=== PATIENT | female | born 1965 ===

== ENCOUNTER 2016-08-10 08:45 | Inpatient (IN) ==
--- NOTE | 2016-08-10 09:14 | EKG Report ---
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
[2016-08-10] MEDS ORDERED: NITROGLYCERIN SL 0.4 MG TABLET SL STA (09:16)
[2016-08-10] MEDS ORDERED: NITROGLYCERIN SL 0.4 MG TABLET SL ONE (09:19)
[2016-08-10 09:31] LABS: Calcium 10.6 MG/DL (8.5-10.1); Osmolality,Calculated 282.1 MOS/KG (273-304); Potassium 3.6 MMOL/L (3.5-5.1)
[2016-08-10] MEDS ORDERED: MORPHINE 2 MG/1 ML SYRINGE ONE (09:48)
[2016-08-10 09:49] LABS: Amorphous Crystals,Urine Occasional /HPF (Few); Apearance,Urine CLOUDY (Clear); Bilirubin,Urine Negative (Negative); Blood, Urine Negative (Negative); Glucose,Urine (UA) Negative (Negative); Ketones,Urine Negative (Negative); Nitrite,Urine Negative (Negative); Protein,Urine Negative; Squamous Epithelial Cell,Urine Occasional /HPF (0-10); Urine Color Yellow (Yellow); Urine Urobilinogen < 2.0 EU/DL (0.2-1.0)
[2016-08-10] MEDS ORDERED: ENOXAPARIN 100 MG/ML SYRINGE SUBCUT STA (09:50)
[2016-08-10 09:53] LABS: Barbiturates Screen,Urine Negative (Negative); Benzodiazepines Screen,Urine Negative (Negative); Cannabinoid Screen,Urine Negative (Negative); Opiate Screen,Urine Positive (Negative); Phencyclidine Screen,Urine Negative (Negative)
--- NOTE | 2016-08-10 09:54 | XRay Report ---
XR chest 2V Indication: Chest pain Comparison: None available Findings: The heart and mediastinum are normal in size and configuration. The pulmonary vascularity is normal in caliber. No lung infiltrates, effusions, pneumothorax or other abnormality is demonstrated. Impression: Normal chest x-ray PROCEDURE INTERPRETED AT [facility] DEPARTMENT OF RADIOLOGY Final Report Signed by: Dr. Slim Bello
[2016-08-10] MEDS ORDERED: ENOXAPARIN 100 MG/ML SYRINGE SUBCUT ONE (09:59)
[2016-08-10 10:14] LABS: Basophils # 0.1 10*3/uL (0.0-0.2); Basophils % 1.1 % (0.0-0.8); Eosinophils # 0.2 10*3/uL (0.0-0.87); Eosinophils % 2.7 % (0.00-10.9); Hematocrit 35.1 VOL% (35.7-47.0); Hemoglobin 11.5 GM/DL (12.0-16.0); Immature Granulocytes % 1.1 %; Immature Granulocytes Absolute 0.07 #; Lymphocytes # 1.6 10*3/uL (1.4-4.0); Mean Corpuscular HGB Conc 32.8 GM/DL (32-36); Mean Corpuscular Hemoglobin 30 PG (27-34); Mean Corpuscular Volume 92.1 FL (87-102); Mean Platelet Volume 10.8 FL (9.6-12.0); Monocytes # 0.5 10*3/uL (0.11-0.8); Monocytes % 8.2 % (1.7-12.7); Neutrophils # 4.1 10*3/uL (1.4-7.4); Neutrophils % 61.9 % (38.7-73.9); Platelet Count 324 T/CUMM (130-400); Red Blood Count 3.81 MC/CUMM (3.8-5.5); Red Cell Distribution Width 14.3 % (9.3-17.3); White Blood Count 6.6 T/CUMM (4-12)
[2016-08-10] MEDS ORDERED: NITROGLYCERIN 2% OINT 1 INCH/GM PACK TOP ONE (10:15)
[2016-08-10] MEDS ORDERED: ASPIRIN 325 MG TABLET PO STA (10:16)
[2016-08-10] MEDS ORDERED: ATORVASTATIN 40 MG TABLET PO STA (10:17)
[2016-08-10] MEDS ORDERED: ACETAMINOPHEN 325 MG TABLET PO PRN (10:17)
[2016-08-10] MEDS ORDERED: MAGNESIUM SULF RIDER 2 GM in PREMIX 1 EACH IV PRN (10:17)
[2016-08-10] MEDS ORDERED: ONDANSETRON 4 MG/2 ML VIAL IV PRN (10:17)
[2016-08-10] MEDS ORDERED: ZALEPLON 5 MG CAPSULE PO PRN (10:17)
[2016-08-10] MEDS ORDERED: MAGNESIUM SULF RIDER 4 GM in PREMIX 1 EACH IV PRN (10:17)
[2016-08-10] MEDS ORDERED: NITROGLYCERIN 2% OINT 1 INCH/GM PACK TOP STA (10:17)
[2016-08-10] MEDS ORDERED: BISACODYL 5 MG TABLET PO PRN (10:17)
[2016-08-10] MEDS ORDERED: METOPROLOL TARTRATE 25 MG TABLET PO STA (10:17)
[2016-08-10] MEDS ORDERED: DOCUSATE SODIUM 100 MG CAPSULE PO PRN (10:17)
[2016-08-10] MEDS ORDERED: METOPROLOL TARTRATE 25 MG TABLET ONE (10:21)
[2016-08-10] MEDS ORDERED: ATORVASTATIN 40 MG TABLET ONE (10:21)
[2016-08-10] MEDS ORDERED: ASPIRIN 325 MG TABLET ONE (10:21)
--- NOTE | 2016-08-10 10:25 | Cardiology History & Physical ---
Assessment and Plan - Time spent with patient Time spent with patient: Less than 30 minutes (1) Hypertension Status: Chronic Assessment and plan: We'll adjust medications accordingly during hospital stay Current Visit: Yes (2) Obesity (BMI 30-39.9) Status: Chronic Assessment and plan: Dietary counseling prior to discharge. Current Visit: Yes (3) Sleep disorder Status: Acute Current Visit: Yes (4) Hypothyroid Status: Chronic Assessment and plan: Resume replacement. Check TSH Current Visit: Yes (5) Chest pain Status: Acute Assessment and plan: Elevated troponin. Suspicious for NSTEMI. 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 She is being taken to woven label designer Current Visit: Yes History of Present Illness Chief complaint: chest pain, elevated troponin History of present illness: Ms. Low is a 51 year old female not previously followed by cardiology. Risk factors include: Hypertension, obesity, tobaccoism and sedentary lifestyle. This morning, patient was awakened with chest "heaviness" in the left chest area , radiating to the left shoulder. It was associated with mild shortness of breath. Was not associated with nausea, vomiting or diaphoresis. She can identify no aggravating factors. She rates the discomfort as a 9 on a scale of 1-10. She received IV morphine and nitroglycerine and the discomfort has decreased to a 4 on a scale of 1-10. The pain has been intermittently occurring for approximately 3 hours. Troponin noted to be 0.2. EKG does not reflect a STEMI. She has been given aspirin, Lovenox 100 mg subcutaneous, nitroglycerin paste. She is receiving a beta yokasta, statin. [place] and has not established herself with a primary care provider at this point. She's never seen a teller head nor had history of known coronary artery disease or myocardial infarction. She tells me she does take her medications routinely and that she will take an antiplatelet daily without fail. No vomiting of blood or passing blood in her stool. No history of allergy to IVP dye or shellfish. She still has her menstrual cycle however her urine is negative. Dr. Worthington is here in the emergency room evaluating the patient and preparing her for heart catheterization. Home Medications Medication Instructions Recorded Confirmed Type Levothyroxine Tab [Synthroid Tab] 200 mcg PO DAILY 08/10/16 08/10/16 History Moxifloxacin HCl [Moxifloxacin Tab] 400 mg PO DAILY 08/10/16 08/10/16 History Olmesartan/Amlodipin/Hcthiazid 1 each PO DAILY 08/10/16 08/10/16 History [Tribenzor 40-10-25 mg Tablet] Allergies Allergy/AdvReac Type Severity Reaction Status Date / Time Penicillins Allergy RASH Verified 08/10/16 09:22 Review of systems: REVIEW OF SYSTEMS: - Constitutional Constitutional: Present: Fatigue. Family acknowledges she snores heavily, holds her breath and casts for air frequently. Neck circumference greater than 44 cm. Absent: syncope, anorexia, night sweats - EENT Eyes: Absent: blurry vision, loss of vision, diplopia Ears: Absent: decreased hearing, ear pain, ear discharge - Cardiovascular Cardiovascular: Present: chest pain with exertion and chest pain at rest. Mild dyspnea on exertion. Mild ankle swelling. Denies palpitations. Absent: chest pain with deep breath, claudication, - Respiratory Respiratory: Present: FOFANA, denies cough. Absent: wheezing, hemoptysis, change in phlegm color - Gastrointestinal Gastrointestinal: Denies constipation. Absent: adbominal pain, hematemesis, hematochezia, melena, change in bowel habits, nausea - Genitourinary Genitourinary: Absent: difficulty urinating, dysuria, urinary hesitancy, flank pain - Musculoskeletal Musculoskeletal: Present: back pain Absent: joint swelling, muscle cramps, muscle weakness - Neurological Neurological: Present: normal gait without frequent falls. Absent: dizziness, hemiparesis - Psychiatric Psychiatric: Absent: anxiety, depression, difficulty concentrating - Endocrine Endocrine: Present: fatigue. Absent: cold intolerance, heat intolerance, polyuria, polyphagia, polydipsia - Hematologic/Lymphatic Hematologic/Lymphatic: Present: easy bruising. Absent: easy bleeding, easy bruisability -Integumentary Integumentary: Absent: lesions, rashes, skin breakdown Medical,Surgical,& Family Hx - Medical History Cardio: History of: Hypertension No history of: CAD, MS Gastrointestinal: History of: GERD - Surgical History Cardiac Surgeries: Patient Denies: Cardiac Catheterization - Social History Smoking Status: Smoker, status unknown Have you smoked in the last 12 months: Yes Time spent discussing smoking cessation with patient: 3 to 10 minutes Frequency of Alcohol Use: None Type of Drug Use: None Cardiology Physical Exam - Constitutional Vitals: Vital Signs Temp Pulse Resp BP Pulse Ox 98 F 65 20 150/92 99 08/10/16 09:14 08/10/16 09:14 08/10/16 09:14 08/10/16 09:14 08/10/16 08:47 Intake and Output 08/09/16 08/10/16 08/10/16 23:59 07:59 15:59 Other: Weight 102.058 kg Patient Weight 08/10/16 23:59 Weight 102.058 kg Exam: General: Appears well with no apparent distress. Pleasant and cooperative. Appears comfortable. HEENT: PERRL, normocephalic, atraumatic. Mucous membranes moist. No jaundice noted. Conjunctiva moist and clear, sclerae anicteric Neck: No JVD/HJR, no thyromegaly or lymphadenopathy noted. No carotid bruit appreciated Cardiac: Regular rate and rhythm. No murmur rub or gallop. Lungs: Clear to auscultation without accessory muscle use to assist the respiratory pattern. Using oxygen via nasal cannula. Abdomen: Soft, bowel sounds normoactive. Nontender and nondistended. No abdominal bruit or thrill noted. No masses noted. Musculoskeletal: No fluid collection. Decreased range of motion is noted. Extremities: No clubbing, cyanosis noted. No edema noted. Upper extremity pulses 2+. Lower extremity pulses 2+. Capillary refill less than 3 seconds. Skin: No unusual lesions or rashes. No skin breakdown appreciated. Neuro: Awake, alert and oriented 3. Moves all extremities well without hemiparesis or paralysis. No essential tremor is appreciated. Result/EKG - Labs CBC & BMP: 08/10/16 09:00 08/10/16 09:00 Lab Results: I have reviewed the past 24 hour labs Labs: Laboratory Results - last 24 hr 08/10/16 08/10/16 08/10/16 09:00 09:00 09:00 WBC 6.6 RBC 3.81 Hgb 11.5 L Hct 35.1 L MCV 92.1 MCH 30 MCHC 32.8 RDW 14.3 Plt Count 324 MPV 10.8 Neut % (Auto) 61.9 Lymph % (Auto) 25.0 [place] % (Auto) 8.2 Eos % (Auto) 2.7 Baso % (Auto) 1.1 H Neut # (Auto) 4.1 Lymph # (Auto) 1.6 [place] # (Auto) 0.5 Eos # (Auto) 0.2 Baso # (Auto) 0.1 Immature Gran % 1.1 Nucleated RBC % 0.0 Immature Gran # 0.07 Nucleated RBCs # 0.00 Sodium 142 Potassium 3.6 Chloride 109 H Carbon Dioxide 25 Anion Gap 11.6 BUN 7 Creatinine 0.70 GFR Calculation 123 BUN/Creatinine Ratio 10.00 Glucose 127 H Calculated Osmolality 282.1 Calcium 10.6 H Magnesium 2.0 Troponin I 0.208 H Urine Color Urine Appearance Urine pH Ur Specific [place] Urine Protein Urine Glucose (UA) Urine Ketones Urine Blood Urine Nitrate Urine Bilirubin Urine Urobilinogen Urine Leukocytes Ur Squamous Epith Cells Amorphous Crystals Ur Culture Indicated? Urine Test Urine Opiates Screen Ur Barbiturates Screen Ur Phencyclidine Scrn U Amphetamine/Methamph U Benzodiazepines Scrn U Cocaine Metab Screen U Cannabinoids Screen 08/10/16 08/10/16 08/10/16 09:00 09:00 10:14 WBC RBC Hgb Hct MCV MCH MCHC RDW Plt Count MPV Neut % (Auto) Lymph % (Auto) [place] % (Auto) Eos % (Auto) Baso % (Auto) Neut # (Auto) Lymph # (Auto) [place] # (Auto) Eos # (Auto) Baso # (Auto) Immature Gran % Nucleated RBC % Immature Gran # Nucleated RBCs # Sodium Potassium Chloride Carbon Dioxide Anion Gap BUN Creatinine GFR Calculation BUN/Creatinine Ratio Glucose Calculated Osmolality Calcium Magnesium Troponin I Urine Color Yellow Urine Appearance Cloudy Urine pH 7.0 Ur Specific [place] 1.010 Urine Protein Negative Urine Glucose (UA) Negative Urine Ketones Negative Urine Blood Negative Urine Nitrate Negative Urine Bilirubin Negative Urine Urobilinogen < 2.0 H Urine Leukocytes Negative Ur Squamous Epith Cells Occasional Amorphous Crystals Occasional Ur Culture Indicated? Not indicated Urine Test Negative Urine Opiates Screen Positive H Ur Barbiturates Screen Negative Ur Phencyclidine Scrn Negative U Amphetamine/Methamph Negative U Benzodiazepines Scrn Negative U Cocaine Metab Screen Negative U Cannabinoids Screen Negative - Diagnostic Findings Procedure: Chest x-ray: report reviewed by me - EKG EKG results: interpreted by me EKG shows: sinus rhythm Quality Measures - VTE Contraindication to Pharmacological VTE Prophylaxis: Already on Theraputic Agent , No Prophylaxis Needed
--- NOTE | 2016-08-10 10:31 | Emergency Department Note ---
Monique Reece Gwan, am scribing for, and in the presence of, Lonnie Mackay M.D. 09:16. Codie Reece Howard T, M.D., personally performed the services described in this documentation, ascribed by Adam Amaya in my presence, and it is both accurate and complete [id number] . Arrival - Arrival Chief Complaint: Chest Pain Stated Complaint: chest pain ED Nursing Triage Note: Patient arrived via ems with complaint of chest pain and vomiting. EMS reports no ST elevation. Patient recieved ASA 324mg, Nitro sprays x 2, Morphine 2mg, Zofran 4mg while in route per EMS. Patient's chest pain started at approx 0745 this am-- woke up with pain. Mid-sternal pain with radiation to left shoulder. PMH: htn, thyroid, gerd. Mode of Arrival: Stretcher Limitations: No Limitations Source: Patient, EMS, Old Records Reviewed, RN Notes Reviewed - History of Present Illness HPI Narrative: Pt is a 51 y/o female, with a hx of HTN, who presents to the ED with a c/o chest pain and vomiting with an onset today. Her associated sxs have been SOB and diaphoresis. Patient stated that her last NML time was 2330 last night. She continued to note that her pain came on this morning at 0745 and she describes the pain as dull/sharp and stated that it is located mid-sternal and that it radiates to her left shoulder. EMS notes that pt was given ASA 324mg, Nitro spray x2, Morphine 2mg and Zofran 4mg en route. She stated that after she received the Morphine, her pain began to ease. Patient confirms that she smokes cigareetss and that she has a FMHx of heart disease. No other problems/ complaints reported in ED. Pt has a PMHx of thyroid disease and GERD. Onset (ago): hour(s) Consistency: constant Severity: moderate Date of Last Menstrual Period: 07/06/2016 Allergies/Adverse Reactions: Allergies Allergy/AdvReac Type Severity Reaction Status Date / Time Penicillins Allergy RASH Verified 08/10/16 09:22 Home Medications: Home Medications Medication Instructions Recorded Confirmed Type Levothyroxine Tab [Synthroid Tab] 200 mcg PO DAILY 08/10/16 08/10/16 History Moxifloxacin HCl [Moxifloxacin Tab] 400 mg PO DAILY 08/10/16 08/10/16 History Olmesartan/Amlodipin/Hcthiazid 1 each PO DAILY 08/10/16 08/10/16 History [Tribenzor 40-10-25 mg Tablet] Review of System - Review of System 12 point system: reviewed and no additional remarkable complaints except as stated - Review of System Constitutional: Present: as per HPI, diaphoresis Respiratory: Present: as per HPI, other (SOB) Cardiovascular: Present: as per HPI, chest pain Musculoskeletal: Present: as per HPI, other (left shoulder pain ) Medical,Surgical,& Family Hx - Medical History Cardio: History of: Hypertension Gastrointestinal: History of: GERD - Social History Smoking Status: Smoker, status unknown Frequency of Alcohol Use: None Type of Drug Use: None Exam Vital Signs: Vital Signs Temperature 98 F 08/10/16 09:14 Pulse Rate 65 08/10/16 09:14 Respiratory Rate 20 08/10/16 09:14 Blood Pressure 150/92 08/10/16 09:14 O2 Sat by Pulse Oximetry 99 08/10/16 08:47 - General General appearance: alert - Head Head exam: Present: atraumatic, normocephalic - Eye Eye exam: Present: normal appearance, PERRL, EOMI - ENT ENT exam: Present: normal oropharynx, mucous membranes moist, TM's normal bilaterally, normal external ear exam - Neck Neck exam: Present: full ROM, trachea midline. Absent: tenderness, meningismus , lymphadenopathy, thyromegaly - Chest Chest inspection: Present: symmetric chest wall rise. Absent: tenderness - Respiratory Respiratory exam: Present: normal lung sounds bilaterally. Absent: respiratory distress - Abdominal Exam Abdominal exam: Present: soft, normal bowel sounds. Absent: distention, tenderness, guarding - Extremities Exam Extremities exam: Present: full ROM. Absent: tenderness, pedal edema, calf tenderness - Back Exam Back exam: Present: full ROM. Absent: tenderness - Neurological Exam Neurological exam: Present: alert, oriented X3, CN II-XII intact. Absent: motor sensory deficit - Psychiatric Psychiatric exam: Present: normal affect, normal mood - Skin Skin exam: Present: warm, dry, intact, normal color Course Course Narrative: Medical decision making: Patient's history and exam is consistent with NSTEMI, elevated troponins and history consistent. Discussed with cardiology service who will evaluate and admit for further evaluation treatment. Results - Labs CBC & BMP: 08/10/16 09:00 08/10/16 09:00 Lab Results: I have reviewed the patients labs Labs: Laboratory Tests 08/10/16 08/10/16 08/10/16 09:00 09:00 09:00 Sodium 142 Potassium 3.6 Chloride 109 H Carbon Dioxide 25 BUN 7 Creatinine 0.70 Glucose 127 H Calcium 10.6 H Troponin I 0.208 H Urine pH 7.0 Ur Specific [place] 1.010 Urine Urobilinogen < 2.0 H Ur Squamous Epith Cells Occasional Amorphous Crystals Occasional - EKG EKG results: interpreted by ERMD, sinus rhythm, normal axis, normal QRS, normal ST/T, no acute changes - Diagnostic Findings Procedure: Chest x-ray: report reviewed by me (no acute) Disposition Clinical Impression: Chest pain, NSTEMI (non-ST elevated myocardial infarction) Case discussed with: patient Disposition: Disch/Xfer-Ipshort Term Hos Condition: Guarded Time of Disposition: 09:53
[2016-08-10] MEDS ORDERED: fentaNYL 100 MCG/2 ML VIAL ONE (11:15)
[2016-08-10] MEDS ORDERED: LIDOCAINE 1% 20 ML VIAL ONE (11:15)
[2016-08-10] MEDS ORDERED: MIDAZOLAM 2 MG/2 ML VIAL ONE (11:15)
--- NOTE | 2016-08-10 11:16 | History and Physical Update ---
Sedation H&P Update - History and Physical H&P was reviewed, the patient examined and there: are no changes in the patients condition since last H&P was completed. - Dictation Physical: refer to H&P completed by admitting physician - Physical Exam Mental Status: alert and oriented Heart: regular rate and rhythm Lung: clear to auscultation Abdomen: within normal limits Vitals: within normal limits History and Physical Changes: none - Sedation Plan for Sedation: moderate Patient Consent: Procedure disscussed with patient and patinet has consented., Risks and benefits were discussed with patient,including infection,, bleeding, injury to surrounding structures, seizure, temporary nerve, Patient understands and accepts potential risks/benefits and agrees to, proceed. ASA Class: IV Airway Assessment: Class IV: Only hard palate visible
[2016-08-10] MEDS ORDERED: TIROFIBAN 5,000 MCG/100 ML PREMIX IV ONE (11:32)
[2016-08-10] MEDS ORDERED: TICAGRELOR 90 MG TABLET ONE (11:51)
[2016-08-10] MEDS ORDERED: TIROFIBAN 5,000 MCG/100 ML PREMIX IV SCH (12:00)
[2016-08-10] MEDS ORDERED: HYDROmorphone 2 MG/1 ML VIAL IV PRN (12:00)
--- NOTE | 2016-08-10 12:07 | Operative Note ---
Date of procedure: 08/10/16 Procedure Preformed: Left heart catheterization with PCI of proximal LAD. Surgeon / Physician: Randall Ferguson Copy Operator: Gómez Bearden Post-op diagnosis: same Findings: High-grade LAD stenosis was successful proximal tenderness prevention of lesion. See full report for details. Specimens: none sent Estimated blood loss: minimal Condition: stable Anesthesia: local, conscious sedation Disposition: floor
--- NOTE | 2016-08-10 12:50 | Cardiac Catheterization ---
Date of Procedure:: 08/10/16 Pre-op Diagnosis: Patient with anginal quality chest pain. Trivially elevated troponin. Post-op diagnosis: same Procedure: LEFT HEART CATHERIZATION History: 51-year-old female who presented with exertional angina symptomatology. This crescendo to rest angina today. She presented was evaluated and found to have some trivially elevated troponin. She has risk factors for heart disease. Pre-Op diagnosis: Unstable angina, coronary disease. Postoperative diagnosis: A stable angina, documented coronary disease with successful intervention of LAD stenosis. Procedures: 1. Left heart catheterization. 2. Left ventricular angiogram. 3. Selective left and right coronary angiograms. 4. Percutaneous coronary intervention with stent in proximal LAD 5.. Right common femoral artery Angio-Seal hemostasis. Equipment: 6 Mauritanian arterial sheath, 6 Mauritanian diagnostic pigtail catheter, JL4 and JR4 diagnostic catheters. A 6 [place]ian Angio-Seal hemostatic device. For percutaneous coronary intervention of LAD: JL4 PCI guide catheter, [employer]- [employer] flex PCI guidewire, 3.0 x 12 mm Rx apex balloon, 3.5 x 16 mm JENNIFER. Medications: Preoperative Benadryl and Valium given by mouth. Lidocaine 1% local anesthesia 10 mls administered by myself. Intraprocedure patient received Versed 2 milligrams IVP, fentanyl 100 micrograms IVP. For PCI: Aggrastat bolus 54 mL's IVP, Aggrastat infusion 18.4 mL/hour, Brilinta 180 mgms. Complications: None immediate. Contrast: Omnipaque 163 milliliters. Description of procedure: After informed consent the patient was given preoperative medications and brought to the catheterization laboratory where their right groin was prepped and draped in usual fashion. IV sedation was then obtained after which local anesthesia was administered at the right groin over the right common femoral artery. Using modified Seldinger technique the right common femoral artery was cannulated with 6 Mauritanian arterial sheath placed. The pigtail catheter was then advanced through the sheath in a retrograde approach through the aorta to the aortic valve. The catheter was advanced through the aortic valve where left ventricular pressures were measured. The catheter was then pulled back into the aortic root and pressures measured. The catheter was then advanced across the aortic valve into the left ventricle where left ventricular angiogram was obtained in the right anterior oblique view. The pigtail catheter was then removed. The JL4 diagnostic coronary catheter was then advanced through the sheath in a retrograde approach and used to cannulate the left coronary artery of which angiograms were obtained in multiple projections. This catheter was then removed. The JR 4 diagnostic coronary catheter was then advanced retrograde through the aorta and used to cannulate the right coronary artery of which angiograms were obtained in multiple projections. This right coronary catheter was then removed. The LAD had a high-grade stenosis proximally. A JL4 PCI guide catheter was advanced and cannulated the left main coronary through which a pro-water flex PCI guidewire was advanced across the LAD lesion to the distal LAD. Over this a 3.0 x 12 mm [place] balloon was advanced and predilation was carried out for 30 seconds at 12 leslye. This balloon was removed. We still has significant stenosis. A 3.5 x 16 mm [employer] JENNIFER was advanced and crossed the proximal LAD stenosis and deployed at 12 leslye for 43 seconds. The balloon was pulled back slightly into the stent more proximally and a 16 leslye inflation was 11 seconds in order to dilate the proximal still little larger than the distal. It appeared we had good apposition without immediate complications with post intervention angiograms. After intervention on initial equivalent was removed. Angio-Seal hemostasis obtained with Angio-Seal of the right common femoral artery. No immediate complications. Hemodynamic data: LV 133/-1 , EDP 14; AO root 134/84, mean 105 . Left ventricular angiogram: The left ventricle is normal size and systolic function. There may be some slight anterior wall hypokinesis but overall ejection fraction is 55+ percent. There is no sniff mitral regurgitation noted. The aortic valve. We have probably a tricuspid structure. The thoracic and abdominal aorta from the right anterior oblique view appeared be unremarkable without gross pathology. The right common iliac, external iliac and common referral artery are all patent. Left main coronary artery angiogram: Calcification is present. This is a medium to large size vessel. It bifurcates to LAD and circumflex arteries. At worst there may be 10-20% stenosis. Left anterior descending artery angiogram: There is diffuse calcification of the LAD. It is a medium caliber vessel proximally slightly smaller than of the circumflex artery. It extends to the posterior apical region. Diagonal branches are small caliber but long vessels especially the first diagonal. Proximally there is a 90% stenosis with YEISON 2 flow. Is otherwise diffuse disease up to 20%. Circumflex artery angiogram: Circumflex artery appears to be the dominant vessel. It is large. It also has diffuse calcification. It gives rise to several obtuse marginal branches and posterior ventricular branch and the what is probably the PDA and AV node artery. There is diffuse calcification. There is diffuse irregularities with most significant stenosis being the distal vessel prior to the takeoff of what is probably the PDA this is 50%. Good flow was noted in this area. Right coronary artery angiogram: RCA is a small vessel possibly codominant may give rise to a small PDA. His diffuse disease with probably from 50-70% mid stenosis. Again this is a small vessel and not a good candidate for intervention. PCI of LAD : This is as noted above in carried out as described. The 9% lesion was dilated 0% residual stenosis. The initial YEISON 2 flow was resolved with YEISON-3 flow within the procedure. Right common femoral artery angiogram: Vessel is patent but seen by where LV gram runoff. Successful Angio-Seal hemostasis. Impression: 1. Left ventricle is normal size and overall normal systolic function with ejection fraction of 55%. Anterior wall may be slightly hypokinetic. 2. LVEDP is normal at 14 mmHg. 3. There is no significant mitral regurgitation. 4. Aortic valve is probably a tricuspid structure without gradient. 5. RCA is small vessel possibly codominant. It has 50-70% mid stenosis. It is not a good vessel for intervention. 6. Left main cord with calcification and 10 -20% stenosis. 7. Circumflex artery with diffuse calcification with possible very distal stenosis at worst 50%. There is otherwise diffuse irregularities but no obstructive disease. 8. LAD with proximal 90% stenosis and YEISON 2 flow. There is diffuse calcification otherwise diffuse mild luminal irregularities. 9. Successful PCI of proximal LAD with a 90% lesion dilated 0% residual stenosis. Initial YEISON 2 flow with residual YEISON-3 flow. 10. Successful Angio-Seal hemostasis right common for artery. Discussion: We'll monitor the patient post procedure. The patient will undergo risk factor modification and reviewed. The last crit we have a see the patient and will follow with the patient is an outpatient once discharged. Implants: See full report above. Anesthesia: local, moderate conscious sedation Surgeon / Physician: Randall Ferguson Electric Crane Operator: other (Gómez LEAL) Estimated blood loss: minimal Specimens: none sent Condition: stable Disposition: floor - Medications / Follow-up
[2016-08-10] MEDS ORDERED: INFLUENZA VIRUS VACCINE 0.5 ML SYRINGE IM ONE (16:14)
[2016-08-10] MEDS ORDERED: SODIUM CHLORIDE 0.9% 1,000 ML IV SCH (16:30)
--- NOTE | 2016-08-10 17:06 | Sleep Medicine Consult ---
Assessment and Plan (1) Unspecified sleep apnea Status: Acute Assessment and plan: With her history of snoring, crowded upper airway, obesity, and medical problems of hypertension, hypothyroidism, and coronary artery disease, sleep evaluation is indicated and she will be scheduled for outpatient polysomnography at the [facility]. She resides in the [facility] and I can see her in follow-up at the sleep clinic there. Thank you for this consult and the opportunity to participate in her care. Current Visit: Yes (2) NSTEMI (non-ST elevated myocardial infarction) Status: Acute Assessment and plan: I reviewed the Gibson data from Lancet 2004 with the patient to their understanding. This study proved significant reduction in the risk of fatal and nonfatal cardiac events in patients with severe obstructive sleep apnea compliant with CPAP, in comparison with those noncompliant with CPAP for severe sleep apnea. Current Visit: Yes (3) Hypertension Status: Chronic Assessment and plan: The prevalence rate for obstructive sleep apnea patients with hypertension is 35 %. That rate can be as high as 80% in patients who require 4 or more medications for blood pressure control. Current Visit: Yes (4) Hypothyroid Status: Chronic Assessment and plan: It is important to maintain euthyroid status in that untreated hypothyroidism can contribute to obstructive sleep apnea. Adjusting thyroid replacement therapy to see adequately suppressed TSH levels is necessary. Current Visit: Yes History of Present Illness Chief complaint: sleep apnea History of present illness: Ms. Low is a 51 year old female who was admitted with chest pain and had elevated troponins concerning for non-ST elevation [place]. During the course for evaluation, it was noted that she has a history of loud snoring and there was concern for sleep apnea as a contributing factor. 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 She was sleep during the day primarily. She has never been told that she stops breathing during her sleep but will awaken from sleep sometimes short of breath. She does have restlessness of her legs and discomfort of her legs that disturb her sleep. She is treated for hypothyroidism and hypertension. She has no known family history of sleep apnea. Home Medications Medication Instructions Recorded Confirmed Type Levothyroxine Tab [Synthroid Tab] 200 mcg PO DAILY 08/10/16 08/10/16 History Olmesartan/Amlodipin/Hcthiazid 1 each PO DAILY 02/07/17 02/07/17 History [Tribenzor 40-10-25 mg Tablet] Allergies Allergy/AdvReac Type Severity Reaction Status Date / Time Penicillins Allergy RASH Verified 08/10/16 09:22 Review of systems: Otherwise unremarkable other than as stated in HPI. She does have nocturia at times. Exam (Pulmonay) H&P - Constitutional Vitals: Period Temp Pulse Resp BP Sys/Lamas Pulse Ox Last 24 Hr 97.3 F-98.1 F 65-81 17-20 131-150/71-92 97-99 Exam: She is alert and responsive in no acute distress. Pupils equal round reactive to light and accommodation. Extraocular movements intact. Oropharynx with class IV Mallampati exam. Neck supple without adenopathy or thyromegaly. No supraclavicular adenopathy is noted. Chest with symmetrical breath sounds without focal wheezes, rhonchi, or rales. Cardiac exam reveals a regular rhythm without murmur or gallop. Abdomen soft nontender without palpable hepatosplenomegaly or mass. Extremities are without clubbing, cyanosis, or edema. Neurologically, she is grossly intact. She moves all extremities with good strength and ambulates with a normal gait. Medical,Surgical,& Family Hx - Medical History Cardio: History of: Hypertension No history of: CAD, [place] Endocrine: History of: Dyslipidemia, Thyroid Disorder Gastrointestinal: History of: GERD - Surgical History Cardiac Surgeries: Patient Denies: Cardiac Catheterization (stents) Abdominal Surgeries: Surgical HX of: Cholecystectomy Reproductive Surgeries: Surgical HX of;: Section - Family History Family History: Reports;: Family Heart Disease, Family Hypertension - Social History Smoking Status: Former smoker Frequency of Alcohol Use: None Type of Drug Use: None Results - Labs CBC & BMP: 08/10/16 09:00 08/10/16 09:00 Lab Results: I have reviewed the past 24 hour labs Labs: TSH is elevated and consistent with uncontrolled hypothyroidism. Quality Measures - VTE Contraindication to Pharmacological VTE Prophylaxis: Already on Theraputic Agent , No Prophylaxis Needed Specialty Discharge - Follow Up or Referrals
[2016-08-10 19:00] LABS: CKMB % 10.9 %
[2016-08-10 19:02] LABS: Troponin I Only 2.27 NG/ML (0.00-0.045)
[2016-08-10] MEDS ORDERED: ATORVASTATIN 40 MG TABLET PO SCH (21:00)
[2016-08-10] MEDS: CARVEDILOL 6.25 MG TABLET PO SCH (21:36)
[2016-08-10] MEDS: TICAGRELOR 90 MG TABLET PO SCH (21:36)
[2016-08-11 04:29] LABS: Basophils # 0.1 10*3/uL (0.0-0.2); Basophils % 0.7 % (0.0-0.8); Eosinophils # 0.2 10*3/uL (0.0-0.87); Hematocrit 30.3 VOL% (35.7-47.0); Immature Granulocytes % 0.8 %; Immature Granulocytes Absolute 0.07 #; Lymphocytes # 2.1 10*3/uL (1.4-4.0); Lymphocytes % 24.3 % (21.3-54.2); Mean Corpuscular Hemoglobin 30 PG (27-34); Mean Corpuscular Volume 89.4 FL (87-102); Mean Platelet Volume 10.7 FL (9.6-12.0); Monocytes # 0.7 10*3/uL (0.11-0.8); Monocytes % 7.7 % (1.7-12.7); Neutrophils # 5.5 10*3/uL (1.4-7.4); Neutrophils % 64.5 % (38.7-73.9); Platelet Count 282 T/CUMM (130-400); Red Blood Count 3.39 MC/CUMM (3.8-5.5); Red Cell Distribution Width 14.5 % (9.3-17.3); White Blood Count 8.5 T/CUMM (4-12)
[2016-08-11 05:05] LABS: Blood Urea Nitrogen 4 MG/DL (7-18); Calcium 10.1 MG/DL (8.5-10.1); Calcium 10.2 MG/DL (8.5-10.1); Glucose 103 MG/DL (74-106); Osmolality,Calculated 284.7 MOS/KG (273-304); Osmolality,Calculated 286.6 MOS/KG (273-304); Potassium 3.6 MMOL/L (3.5-5.1); Potassium 3.7 MMOL/L (3.5-5.1); Risk Ratio 6.63; Sodium 145 MMOL/L (136-145); Total Protein 5.4 G/DL (6.4-8.3); VLDL CHOLESTEROL 21.2 MG/DL
[2016-08-11] MEDS ORDERED: LEVOTHYROXINE 200 MCG TABLET PO SCH (07:00)
--- NOTE | 2016-08-11 07:30 | EKG Report ---
Stationary ECG Study [facility] Test Date: 08/11/2016 7:29:38 AM Pat Name: CARLO FRANKLIN Department: Room: 289 Gender: F Lmft: : 1965 Requested by: Randall Diaz Order Number: [id number] Reading MD: NUSRAT SANCHEZ Intervals [place] Rate: 67 P: 59 [place]: 197 QRS: 12 QRSD: 93 T: 143 QT: 470 QTc: 486 Interpretive Statements SINUS RHYTHM LOW QRS VOLTAGE IN PRECORDIAL LEADS ST DEVIATION AND MODERATE T-WAVE ABNORMALITY, CONSIDER ANTEROLATERAL ISCHEMIA Electronically Signed On 08-11-16 12:53:45 AIRPORT OPERATIONS SUPERVISOR by NUSRAT SANCHEZ [email or web address]
--- NOTE | 2016-08-11 08:07 | ECHO Report ---
Gissell Low Exam Date: 08/10/2016 12:56 Referring Physician: Technologist: Fernanda Hobbs RDCS Age: 51 Ht (in): Wt (lb): Gender: F Exam Location: [facility] Echo Indications: Chest pain, unspecified, Shortness of breath, Non-ST elevation (NSTEMI) myocardial infarction, Essential (primary) hypertension, Chronic fatigue, unspecified, Elevated troponin, Sleep disorder BP: / HR: Rhythm: Sinus Technical Quality: Technically difficult study IMPRESSIONS The left ventricular ejection fraction is estimated at 60-65% but there appears to be very mild distal anterapical hypokinesis. Mild concentric left ventricular hypertrophy with mild diastolic dysfunction. Trace to mild mitral valve regurgitation. Trace to mild tricuspid valve regurgitation. MEASUREMENTS (Male / Female) Normal Values 2D ECHO LV Diastolic Diameter PLAX 4.3 cm 4.2 - 5.9 / 3.9 - 5.3 cm LV Systolic Diameter PLAX 2.9 cm LV Fractional Shortening PLAX 32.9 % IVS Diastolic Thickness 1.1 cm 0.6 - 1.0 / 0.6 - 0.9 cm LVPW Diastolic Thickness 1.1 cm 0.6 - 1.0 / 0.6 - 0.9 cm RV Internal Dim ED PLAX 2.5 cm Aortic Root Diameter 3.2 cm LA Systolic Diameter LX 3.6 cm 3.0 - 4.0 / 2.7 - 3.8 cm DOPPLER TR Peak Velocity 225.0 cm/s TR Peak Gradient 20.3 mmHg FINDINGS Left Ventricle Mild concentric left ventricular hypertrophy with mild diastolic dysfunction. The left ventricular ejection fraction is estimated at 60-65% but there appears to be very mild distal anterapical hypokinesis. Right Ventricle The right ventricle is normal in size and function. Right Atrium The right atrium is normal in size. Left Atrium The left atrium is normal in size. Mitral Valve Thickened mitral valve. Trace to mild mitral valve regurgitation. Aortic Valve Morphologically normal aortic valve without significant sclerosis or stenosis. There is no aortic regurgitation. Tricuspid Valve Morphologically normal tricuspid valve. Trace to mild tricuspid valve regurgitation. Tricuspid regurgitation velocities suggest a PAP of 30 mmHg. Pulmonic Valve Morphologically normal pulmonic valve. Mild pulmonary valve regurgitation. Pericardium Normal pericardium without effusion. Aorta Normal ascending aorta dimension. Filippo Worthington (Electronically Signed) Final Date: 10 August 2016 19:12
[2016-08-11] MEDS: CARVEDILOL 6.25 MG TABLET PO SCH (08:57)
[2016-08-11] MEDS: TICAGRELOR 90 MG TABLET PO SCH (08:58)
[2016-08-11] MEDS ORDERED: LEVOFLOXACIN 500 MG TABLET PO SCH (09:00)
[2016-08-11] MEDS ORDERED: hydroCHLOROthiazide 25 MG TABLET PO SCH (09:00)
[2016-08-11] MEDS ORDERED: PANTOPRAZOLE 40 MG TABLET PO SCH (09:00)
[2016-08-11] MEDS ORDERED: ASPIRIN EC 81 MG TABLET PO SCH (09:00)
[2016-08-11] MEDS ORDERED: OLMESARTAN 20 MG TABLET PO SCH (09:00)
[2016-08-11] MEDS ORDERED: amLODIPine 10 MG TABLET PO SCH (09:00)
[2016-08-11 12:09] VITALS: BP 124/86
--- NOTE | 2016-08-11 12:17 | Discharge Summary ---
<Lora Sung E - Last Filed: 08/11/16 12:18> Hospital Course - Hospital Course Hospital Course: Ms. Low is a 51 year old female not previously followed by cardiology. Risk factors include: Hypertension, obesity, tobaccoism and sedentary lifestyle. Patient presented to the emergency department [facility] 08/10/2016 after experiencing a chest heaviness radiating to the left shoulder. It was associated with mild shortness of breath. When she arrived to the emergency department Dr. Worthington examine the patient. Her troponin noted to be 0.2. She received the usual acute coronary syndrome protocol was taken emergently to the cardiac catheterization lab where she underwent heart catheterization performed by Dr. Ferguson. The following impression is noted: Procedures: 1. Left heart catheterization. 2. Left ventricular angiogram. 3. Selective left and right coronary angiograms. 4. Percutaneous coronary intervention with stent in proximal LAD 5.. Right common femoral artery Angio-Seal hemostasis. Equipment: 6 Colombian arterial sheath, 6 Colombian diagnostic pigtail catheter, JL4 and JR4 diagnostic catheters. A 6 [place] Angio-Seal hemostatic device. For percutaneous coronary intervention of LAD: JL4 PCI guide catheter, [employer] flex PCI guidewire, 3.0 x 12 mm Rx apex balloon, 3.5 x 16 mm JENNIFER. 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 Overnight, she did well. She has been walking in her room without difficulty. Her vital signs are stable and she is anxious for release home. She is been discharged home in stable condition. She is following up for outpatient sleep study is scheduled by Dr. Ward in [facility]. She is being given a follow-up appointment with Dr. Worthington in one week. At that visit along labs will be obtained: BMP, magnesium and CBC, EKG. I discussed the importance of medication adherence including taking aspirin and Brilinta as instructed. She verbalized understanding of this information. Discharge medications will include the following: Aspirin 81 mg orally daily Brilinta 90 mg orally twice a day without fail. She is being given a prescription guarded discharge Atorvastatin 40 mg orally each evening Coreg 6.25 orally twice a day Benicar 40 mg orally daily HCTZ 25 mg orally daily Norvasc 10 mg orally daily Prilosec 20 mg orally daily - Time spent with patient Time with patient DS: Greater than 30 minutes Diagnosis - Discharge Diagnosis (1) Hypertension Status: Chronic (2) Obesity (BMI 30-39.9) Status: Chronic (3) Sleep disorder Status: Chronic (4) Hypothyroid Status: Chronic (5) Chest pain Status: Resolved (6) NSTEMI (non-ST elevated myocardial infarction) Status: Resolved Specialty Discharge - Follow Up or Referrals Follow up with: Filippo Worthington MD [Physician] - 08/18/16 9:50 am (BMP, Mg, CBC and EKG) Discharge Plan - Discharge Data Disposition: Disch To Home/Self Care Condition at Discharge: Stable Discharge Diet: heart healthy Activity: other Hygiene: no restrictions Weight Bearing at Discharge: other (post-cath expectations post cath expectations) Driving: other (post-cath expectations) Contact your physician if you experience:: fever over 101, Difficulty voiding, Redness or swelling, Nausea/Vomiting, Shortness of breath, Bleeding, pain uncontrolled by pain medications - Discharge Medications New Aspirin EC Tab 81 mg PO DAILY #30 tablet amLODIPine [Norvasc] 10 mg PO DAILY tablet Atorvastatin [Lipitor] 40 mg PO BEDTIME #30 tablet Carvedilol [Coreg] 6.25 mg PO BID #60 tablet Pantoprazole Tab [Protonix Tab] 40 mg PO DAILY #30 tablet Ticagrelor [Brilinta] 90 mg PO BID #60 tablet hydroCHLOROthiazide [Hydrochlorothiazide] 25 mg PO DAILY tablet Continue Olmesartan/Amlodipin/Hcthiazid [Tribenzor 40-10-25 mg Tablet] 1 each PO DAILY Levothyroxine Tab [Synthroid Tab] 200 mcg PO DAILY - Follow Up or Referral Follow Up: Filippo Worthington MD [Physician] - 08/18/16 9:50 am (BMP, Mg, CBC and EKG) - Forms/Instructions Instructions: Myocardial Infarction (GEN), Coronary Artery Disease (GEN), Left Heart Catheterization (DC), Heart Healthy Diet (GEN), Cigarette Smoking and Your Health, Brace Maker (GEN), Coronary Intravascular Stent Placement, Brace Maker (GEN) Exam - Constitutional Vitals: Period Temp Pulse Resp BP Sys/Lamas Pulse Ox Last 24 Hr 98.4 F 83 20 124/86 97 Exam: General: Appears well with no apparent distress. Pleasant and cooperative. Appears comfortable. HEENT: PERRL, normocephalic, atraumatic. Mucous membranes moist. No jaundice noted. Conjunctiva moist and clear, sclerae anicteric Neck: No JVD/HJR, no thyromegaly or lymphadenopathy noted. No carotid bruit appreciated Cardiac: Regular rate and rhythm. No murmur rub or gallop. Lungs: Clear to auscultation without accessory muscle use to assist the respiratory pattern. Not requiring oxygen. Abdomen: Soft, bowel sounds normoactive. Nontender and nondistended. No abdominal bruit or thrill noted. No masses noted. Musculoskeletal: No fluid collection. Decreased range of motion is noted. Extremities: Right groin free of hematoma or bruit. No clubbing, cyanosis noted. No edema noted. Upper extremity pulses 2+. Lower extremity pulses 2+. Capillary refill less than 3 seconds. Skin: No unusual lesions or rashes. No skin breakdown appreciated. Neuro: Awake, alert and oriented 3. Moves all extremities well without hemiparesis or paralysis. No essential tremor is appreciated. Discharge Results - Imaging and Cardiology Cardiology Procedure: report reviewed by me Procedure: Chest x-ray: report reviewed by me DS: Provider Date of admission: 08/10/2016 Primary care physician: Tresa Wolfe MD Attending physician on admission: Dr. Filippo Worthington Discharging clinician: Lora Sung NP Expected date of discharge: 08/11/16 <Filippo Worthington - Last Filed: 08/11/16 16:19> Hospital Course - Hospital Course Hospital Course: I have seen, interviewed, examined the patient and reviewed his chart and discussed the case with the mid-level provider and agree with the plan as outlined in the note.
== END 2016-08-11 13:22 | disposition home or self-care (01) | DRG 247 ==
LOC: N.ED 08:45 → N.SDS 10:17 → N.CL 10:18 → N.TELEN 10:58 → N.CL 10:58 → N.ED 11:03 → N.CL 11:05 → N.TELEN 16:09 → N.ED 08-11 13:22 → N.TELEN 08-11 13:31
PROVIDERS: ADMIT General Practice; ATTEND General Practice
PROC: CLCCHCL (ICD-10-PCS; 2016-08-10 11:15)

== ENCOUNTER 2017-02-26 22:08 | Inpatient (IN) ==
[2017-02-27] MEDS ORDERED: SODIUM CHLORIDE 0.45% 1,000 ML IV SCH (01:00)
[2017-02-27 01:40] LABS: Basophils # 0.1 10*3/uL (0.0-0.2); Basophils % 1.4 % (0.0-0.8); Eosinophils # 0.2 10*3/uL (0.0-0.87); Eosinophils % 2.9 % (0.00-10.9); Hematocrit 38.2 VOL% (35.7-47.0); Hemoglobin 13.1 GM/DL (12.0-16.0); Immature Granulocytes % 0.4 %; Immature Granulocytes Absolute 0.02 #; Lymphocytes # 2.2 10*3/uL (1.4-4.0); Lymphocytes % 42.9 % (21.3-54.2); Mean Corpuscular HGB Conc 34.3 GM/DL (32-36); Mean Corpuscular Hemoglobin 31 PG (27-34); Mean Corpuscular Volume 90.3 FL (87-102); Mean Platelet Volume 10.7 FL (9.6-12.0); Monocytes # 0.4 10*3/uL (0.11-0.8); Monocytes % 7.3 % (1.7-12.7); NRBC # 0.02 10*3/uL; Neutrophils # 2.3 10*3/uL (1.4-7.4); Neutrophils % 45.1 % (38.7-73.9); Platelet Count 256 T/CUMM (130-400); Red Blood Count 4.23 MC/CUMM (3.8-5.5); Red Cell Distribution Width 15.1 % (9.3-17.3); White Blood Count 5.1 T/CUMM (4-12)
[2017-02-27 02:13] LABS: Albumin 4.3 G/DL (3.4-5.0); Bilirubin,Total 0.5 MG/DL (0.2-1.0); Calcium 11.6 MG/DL (8.5-10.1); Osmolality,Calculated 275.5 MOS/KG (273-304); Potassium 3.8 MMOL/L (3.5-5.1); Total Protein 7.1 G/DL (6.4-8.3)
[2017-02-27 02:25] LABS: Risk Ratio 10.63; VLDL CHOLESTEROL 24.8 MG/DL
[2017-02-27 08:39] LABS: Troponin I Only < 0.015 NG/ML (0.00-0.045)
--- NOTE | 2017-02-27 08:54 | EKG Report ---
Stationary ECG Study [facility] Test Date: 02/27/2017 1:48:10 AM Pat Name: CARLO FRANKLIN Department: Room: 294 Gender: F Video Conference Specialist: : 1965 Requested by: Debi Ang Order Number: [id number] Reading MD: LATRICIA ROGERS Intervals [place] Rate: 65 P: 26 [place]: 180 QRS: -42 QRSD: 111 T: 8 QT: 429 QTc: 441 Interpretive Statements SINUS RHYTHM WITH SINUS ARRHYTHMIA ABNORMAL LEFT AXIS DEVIATION NONSPECIFIC T WAVE ABNORMALITY Electronically Signed On 02-28-17 11:45:43 CDT by LATRICIA ROGERS [email or web address]
[2017-02-27 10:05] LABS: Apearance,Urine CLOUDY (Clear); Bacteria,Urine Moderate /HPF (Few); Bilirubin,Urine Negative (Negative); Blood, Urine Small mg/dL (Negative); Glucose,Urine (UA) Negative (Negative); Ketones,Urine Negative (Negative); Mucus,Urine Occasional /LPF (Occasional); Nitrite,Urine Negative (Negative); Protein,Urine Negative; RBC,Urine 1 /HPF (0-4); Squamous Epithelial Cell,Urine Occasional /HPF (0-10); Urine Color Yellow (Yellow); Urine Specific Gravity 1.012 (1.001-1.035); Urine Urobilinogen < 2.0 EU/DL (0.2-1.0); WBC,Urine 12 /HPF (0-6)
[2017-02-27 11:28] LABS: Troponin I Only < 0.015 NG/ML (0.00-0.045)
--- NOTE | 2017-02-27 15:45 | ECHO Report ---
Gissell Low Exam Date: 02/27/2017 11:30 Referring Physician: Technologist: Fernanda Hobbs RDCS Age: 52 Ht (in): 66 Wt (lb): 207 Gender: F Exam Location: [facility] Echo Indications: Chest pain, unspecified, Hypotension, SHARIF BP: 140 / 55 HR: 64 Rhythm: Sinus Technical Quality: Fair IMPRESSIONS Normal LV systolic function, ejection fraction 55%. Grade 1/4 diastolic dysfunction. Mild concentric left ventricular hypertrophy. Mild aortic, tricuspid and pulmonic regurgitation. Pulmonary artery pressures estimated at 24 more meters mercury. MEASUREMENTS (Male / Female) Normal Values 2D ECHO LV Diastolic Diameter PLAX 3.8 cm 4.2 - 5.9 / 3.9 - 5.3 cm LV Systolic Diameter PLAX 2.7 cm LV Fractional Shortening PLAX 29.3 % IVS Diastolic Thickness 1.4 cm 0.6 - 1.0 / 0.6 - 0.9 cm LVPW Diastolic Thickness 1.4 cm 0.6 - 1.0 / 0.6 - 0.9 cm RV Internal Dim ED PLAX 3.3 cm Aortic Root Diameter 3.2 cm LA Systolic Diameter LX 3.5 cm 3.0 - 4.0 / 2.7 - 3.8 cm DOPPLER TR Peak Velocity 185.0 cm/s TR Peak Gradient 13.7 mmHg FINDINGS Left Ventricle Normal left ventricular cavity size. Mild left ventricular hypertrophy. Left ventricular ejection fraction is estimated at 55 %. Right Ventricle The right ventricle is normal in size and function. Right Atrium The right atrium is normal in size. Left Atrium The left atrium is normal in size. Mitral Valve Morphologically normal mitral valve without significant stenosis or prolapse. There is no mitral regurgitation. Aortic Valve The aortic valve is trileaflet and has normal motion. Trace to mild aortic valve regurgitation. Tricuspid Valve Morphologically normal tricuspid valve. Trace tricuspid valve regurgitation. Tricuspid regurgitation velocities suggest a PAP of 24 mmHg. Pulmonic Valve Morphologically normal pulmonic valve. Trace pulmonary valve regurgitation. Pericardium Normal pericardium without effusion. Aorta Normal ascending aorta dimension. Debi Ang MD (Electronically Signed) Final Date: 27 February 2017 15:44
--- NOTE | 2017-02-27 15:50 | Cardiology History & Physical ---
Assessment and Plan (1) Hypotension Status: Acute Assessment and plan: I suspect this is secondary to her recent change in antihypertensives. We will discharge her home on less medications as will be described in her discharge summary. We are going to stop her IV fluids first and have her ambulate, make sure that her vital signs remained stable prior to discharge. Current Visit: Yes (2) Coronary artery disease Status: Chronic Current Visit: Yes (3) Hypertension Status: Chronic Current Visit: No (4) Hypothyroid Status: Chronic Current Visit: No (5) Urinary tract infection Status: Acute Assessment and plan: We will treated with 3 days of Cipro Current Visit: Yes History of Present Illness Chief complaint: dizziness History of present illness: Business Reporter: Dr. Worthington. Ms. Low is a 51 year old female with a history of coronary artery disease, hypertension. She was admitted to the hospital in August 2016 with acute coronary syndrome and underwent PCI of the LAD with a synergy 3.5 x 16 mm drug- eluting stent. She was feeling unwell, somewhat lightheaded and found to be hypotensive with a blood pressure in the 70s. She was transferred here from [place] for further evaluation and treatment. She denies any chest pain, shortness of breath, lower extremity edema, orthopnea, palpitations, paroxysmal nocturnal dyspnea. She has not had any other acute illness such as nausea, vomiting, diarrhea. She does acknowledge that her medications have been changed , in the past she was well-controlled on Tribenzor. She was recently on Diovan 160 mg p.o. daily as well as chlorthalidone, and 3 days prior to admission this was changed to Tribenzor 40/10/25. She has not had any other acute complaints. She has been hydrated and is requesting to be discharged home. Home Medications Medication Instructions Recorded Confirmed Type Olmesartan/Amlodipin/Hcthiazid 1 each PO DAILY 08/10/16 02/27/17 History [Tribenzor 40-10-25 mg Tablet] Aspirin EC Tab 81 mg PO DAILY #30 tablet 08/11/16 02/27/17 Rx Carvedilol [Coreg] 12.5 mg PO BID 02/27/17 02/27/17 History Clopidogrel [Plavix] 75 mg PO DAILY 02/27/17 02/27/17 History Liothyronine Sodium [Liothyronine 25 mg PO BID 02/27/17 02/27/17 History Sodium] Allergies Allergy/AdvReac Type Severity Reaction Status Date / Time Penicillins Allergy RASH Verified 08/10/16 09:22 12 point system: reviewed and no additional remarkable complaints except as stated Medical,Surgical,& Family Hx - Medical History Cardio: History of: CAD, Hypertension, [place] HEENT: Comment Only: HEENT Problems (sinus surgery-nasal polyp) Endocrine: History of: Dyslipidemia, Thyroid Disorder Gastrointestinal: History of: GERD - Surgical History Cardiac Surgeries: Sugical HX of: Cardiac Catheterization (PCI LAD 08/2016 Synergy) Abdominal Surgeries: Surgical HX of: Abdominal Surgery, Cholecystectomy Reproductive Surgeries: Surgical HX of;: Section, Gynecologic Surgery ( pre cervical cancer cells removed) - Family History Family History: Reports;: Family Heart Disease, Family Hypertension - Social History Smoking Status: Former smoker Frequency of Alcohol Use: Rarely Type of Drug Use: None Functional capacity: independent ambulation Cardiology Physical Exam - Constitutional Vitals: Vital Signs Temp Pulse Resp BP Pulse Ox 98.2 F 62 18 140/55 96 02/27/17 12:00 02/27/17 12:00 02/27/17 12:00 02/27/17 12:00 02/27/17 12:00 Intake and Output 02/26/17 02/27/17 02/27/17 23:59 07:59 15:59 Intake Total 0 / 0 200 / 200 Balance 0 / 0 200 / 200 Intake: IV 200 / 200 1/2Ns 1,000 ml @ 75 mls/ 200 / 200 hr IV .[id number] MONO Rx#: [id number] Oral 0 / 0 Other: # Voids 1 Weight 93.894 kg 93.894 kg Patient Weight 02/27/17 23:59 Weight 93.894 kg Exam: General appearance: normal weight, no acute distress - Head Head exam: Present: normal inspection, normocephalic, atraumatic. Absent: hematoma, laceration - Eye Eye exam: Present: EOMI. Absent: conjunctival injection, nystagmus, periorbital swelling, scleral icterus, laceration to eyelids Pupils: Present: PERRL. Absent: constricted, dilated, fixed, irregular, unequal - ENT ENT exam: Present: normal exam, normal external ear exam - Neck Neck exam: Present: normal inspection. Absent: lymphadenopathy, meningismus, tenderness, thyromegaly - Respiratory Respiratory exam: Present: clear to auscultation bilaterally. Absent: accessory muscle use, chest wall tenderness - Cardiovascular Cardiovascular exam: Present: regular rate and rhythm. Absent: carotid bruit, gallop, JVD, rubs - GI/Abdominal GI/Abdominal exam: Present: normal bowel sounds, soft. Absent: distended, firm , guarding, hernia, mass, tenderness, rebound. - Extremities Exam Extremities exam: Present: normal inspection, normal capillary refill. Absent: calf tenderness, edema - Back Exam Back exam: Present: normal inspection. Absent: muscle spasm, vertebral tenderness - Neurological Exam Neurological exam: Present: alert, oriented X3, grossly intact without resting or intention tremor - Psychiatric Psychiatric exam: Present: normal affect, normal mood - Skin Skin exam: Present: normal color, warm, dry, intact. Absent: cyanosis, diaphoretic, rash, urticaria Result/EKG - Labs CBC & BMP: 02/27/17 01:24 02/27/17 01:24 Lab Results: I have reviewed the past 24 hour labs Labs: Laboratory Results - last 24 hr 02/27/17 02/27/17 02/27/17 01:24 01:24 01:24 WBC 5.1 RBC 4.23 Hgb 13.1 Hct 38.2 MCV 90.3 MCH 31 MCHC 34.3 RDW 15.1 Plt Count 256 MPV 10.7 Neut % (Auto) 45.1 Lymph % (Auto) 42.9 [place] % (Auto) 7.3 Eos % (Auto) 2.9 Baso % (Auto) 1.4 H Neut # (Auto) 2.3 Lymph # (Auto) 2.2 [place] # (Auto) 0.4 Eos # (Auto) 0.2 Baso # (Auto) 0.1 Immature Gran % 0.4 Nucleated RBC % 0.4 Immature Gran # 0.02 Nucleated RBCs # 0.02 Immature Plt Fraction 0.0 Sodium 139 Potassium 3.8 Chloride 107 Carbon Dioxide 24 Anion Gap 11.8 BUN 10 Creatinine 0.80 GFR Calculation 100 BUN/Creatinine Ratio 12.00 Glucose 107 H Calculated Osmolality 275.5 Calcium 11.6 H Total Bilirubin 0.50 AST 25 ALT 32 Alkaline Phosphatase 71 Total Creatine Kinase CK-MB (CK-2) Troponin I Total Protein 7.1 Albumin 4.3 Globulin 2.8 Albumin/Globulin Ratio 1.5 Triglycerides 124 Cholesterol 287 H LDL Cholesterol 209.0 VLDL Cholesterol 24.8 HDL Cholesterol 27 L Heart Disease Risk Ratio 10.63 Urine Color Urine Appearance Urine pH Ur Specific [place] Urine Protein Urine Glucose (UA) Urine Ketones Urine Blood Urine Nitrate Urine Bilirubin Urine Urobilinogen Urine Leukocytes Urine RBC Urine WBC Ur Squamous Epith Cells Urine Bacteria Urine Mucus Ur Culture Indicated? 02/27/17 02/27/17 02/27/17 07:13 10:40 Unknown WBC RBC Hgb Hct MCV MCH MCHC RDW Plt Count MPV Neut % (Auto) Lymph % (Auto) [place] % (Auto) Eos % (Auto) Baso % (Auto) Neut # (Auto) Lymph # (Auto) [place] # (Auto) Eos # (Auto) Baso # (Auto) Immature Gran % Nucleated RBC % Immature Gran # Nucleated RBCs # Immature Plt Fraction Sodium Potassium Chloride Carbon Dioxide Anion Gap BUN Creatinine GFR Calculation BUN/Creatinine Ratio Glucose Calculated Osmolality Calcium Total Bilirubin AST ALT Alkaline Phosphatase Total Creatine Kinase 72 69 CK-MB (CK-2) < 1.0 < 1.0 Troponin I < 0.015 < 0.015 Total Protein Albumin Globulin Albumin/Globulin Ratio Triglycerides Cholesterol LDL Cholesterol VLDL Cholesterol HDL Cholesterol Heart Disease Risk Ratio Urine Color Yellow Urine Appearance Cloudy Urine pH 7.0 Ur Specific [place] 1.012 Urine Protein Negative Urine Glucose (UA) Negative Urine Ketones Negative Urine Blood Small Urine Nitrate Negative Urine Bilirubin Negative Urine Urobilinogen < 2.0 H Urine Leukocytes Trace Urine RBC 1 Urine WBC 12 Ur Squamous Epith Cells Occasional Urine Bacteria Moderate Urine Mucus Occasional Ur Culture Indicated? Results to follow - Diagnostic Findings Procedure: Ultrasound: report reviewed by me - EKG EKG results: interpreted by me, sinus rhythm
--- NOTE | 2017-02-27 15:54 | Discharge Summary ---
Hospital Course - Hospital Course Hospital Course: Ms. Low is a 51 year old female with a history of coronary artery disease, hypertension. She was admitted to the hospital in August 2016 with acute coronary syndrome and underwent PCI of the LAD with a synergy 3.5 x 16 mm drug- eluting stent. She was feeling unwell, somewhat lightheaded and found to be hypotensive with a blood pressure in the 70s. She was transferred here from [place] for further evaluation and treatment. She denies any chest pain, shortness of breath, lower extremity edema, orthopnea, palpitations, paroxysmal nocturnal dyspnea. She has not had any other acute illness such as nausea, vomiting, diarrhea. She does acknowledge that her medications have been changed , in the past she was well-controlled on Tribenzor. She was recently on Diovan 160 mg p.o. daily as well as chlorthalidone, and 3 days prior to admission this was changed to Tribenzor /04/27. She has not had any other acute complaints. She required IV fluid resuscitation, and her blood pressure quickly normalized. Stable and she was asymptomatic. She achieved hemodynamics recovery much more quickly than anticipated. She was found to have urinary tract infection which will be treated. An echocardiogram was performed and was overall unremarkable. Diagnosis - Discharge Diagnosis (1) Hypotension Status: Acute (2) Coronary artery disease Status: Chronic (3) Hypertension Status: Chronic (4) Hypothyroid Status: Chronic (5) Urinary tract infection Status: Acute Discharge Plan - Discharge Data Disposition: Disch To Home/Self Care Condition at Discharge: Stable Discharge Diet: heart healthy Activity: resume usual activities as tolerated Hygiene: no restrictions - Discharge Medications New Ciprofloxacin Tab [Cipro Tab] 250 mg PO BID #6 tablet Valsartan [Diovan] 160 mg PO BID #60 tablet amLODIPine [Norvasc] 5 mg PO DAILY #30 tablet Continue Aspirin EC Tab 81 mg PO DAILY #30 tablet Clopidogrel [Plavix] 75 mg PO DAILY Carvedilol [Coreg] 12.5 mg PO BID Liothyronine Sodium 25 mg PO BID Discontinued Olmesartan/Amlodipin/Hcthiazid [Tribenzor 40-10-25 mg Tablet] 1 each PO DAILY - Follow Up or Referral Follow Up: Filippo Worthington MD [Physician] - 2 Weeks - Forms/Instructions Additional Discharge Instructions: Continue to monitor blood pressure at home and see other Dr. Worthington or primary care provider if it becomes elevated or remains low. Exam - Constitutional Vitals: Period Temp Pulse Resp BP Sys/Lamas Pulse Ox Last 24 Hr 96.7 F-98.4 F 62-86 16-18 115-140/55-90 93-98 Discharge Results Procedures and tests throughout hospitalization: Pending Orders 02/27/17 Urine Culture Routine 02/27/17 01:24 Blood Culture Stat 02/27/17 14:52 Troponin,CKMB & Ck Total Routine Labs on day of discharge: Labs from last 24 hours 02/27/17 02/27/17 02/27/17 Unknown 10:40 07:13 WBC RBC Hgb Hct MCV MCH MCHC RDW Plt Count MPV Neut % (Auto) Lymph % (Auto) [place] % (Auto) Eos % (Auto) Baso % (Auto) Neut # (Auto) Lymph # (Auto) [place] # (Auto) Eos # (Auto) Baso # (Auto) Immature Gran % Nucleated RBC % Immature Gran # Nucleated RBCs # Immature Plt Fraction Sodium Potassium Chloride Carbon Dioxide Anion Gap BUN Creatinine GFR Calculation BUN/Creatinine Ratio Glucose Calculated Osmolality Calcium Total Bilirubin AST ALT Alkaline Phosphatase Total Creatine Kinase 69 72 CK-MB (CK-2) < 1.0 < 1.0 Troponin I < 0.015 < 0.015 Total Protein Albumin Globulin Albumin/Globulin Ratio Triglycerides Cholesterol LDL Cholesterol VLDL Cholesterol HDL Cholesterol Heart Disease Risk Ratio Urine Color Yellow Urine Appearance Cloudy Urine pH 7.0 Ur Specific [place] 1.012 Urine Protein Negative Urine Glucose (UA) Negative Urine Ketones Negative Urine Blood Small Urine Nitrate Negative Urine Bilirubin Negative Urine Urobilinogen < 2.0 H Urine Leukocytes Trace Urine RBC 1 Urine WBC 12 Ur Squamous Epith Cells Occasional Urine Bacteria Moderate Urine Mucus Occasional Ur Culture Indicated? Results to follow 02/27/17 02/27/17 02/27/17 01:24 01:24 01:24 WBC 5.1 RBC 4.23 Hgb 13.1 Hct 38.2 MCV 90.3 MCH 31 MCHC 34.3 RDW 15.1 Plt Count 256 MPV 10.7 Neut % (Auto) 45.1 Lymph % (Auto) 42.9 [place] % (Auto) 7.3 Eos % (Auto) 2.9 Baso % (Auto) 1.4 H Neut # (Auto) 2.3 Lymph # (Auto) 2.2 [place] # (Auto) 0.4 Eos # (Auto) 0.2 Baso # (Auto) 0.1 Immature Gran % 0.4 Nucleated RBC % 0.4 Immature Gran # 0.02 Nucleated RBCs # 0.02 Immature Plt Fraction 0.0 Sodium 139 Potassium 3.8 Chloride 107 Carbon Dioxide 24 Anion Gap 11.8 BUN 10 Creatinine 0.80 GFR Calculation 100 BUN/Creatinine Ratio 12.00 Glucose 107 H Calculated Osmolality 275.5 Calcium 11.6 H Total Bilirubin 0.50 AST 25 ALT 32 Alkaline Phosphatase 71 Total Creatine Kinase CK-MB (CK-2) Troponin I Total Protein 7.1 Albumin 4.3 Globulin 2.8 Albumin/Globulin Ratio 1.5 Triglycerides 124 Cholesterol 287 H LDL Cholesterol 209.0 VLDL Cholesterol 24.8 HDL Cholesterol 27 L Heart Disease Risk Ratio 10.63 Urine Color Urine Appearance Urine pH Ur Specific [place] Urine Protein Urine Glucose (UA) Urine Ketones Urine Blood Urine Nitrate Urine Bilirubin Urine Urobilinogen Urine Leukocytes Urine RBC Urine WBC Ur Squamous Epith Cells Urine Bacteria Urine Mucus Ur Culture Indicated? DS: Provider Date of admission: 02/26/17 22:14 Primary care physician: Tresa Wolfe MD Attending physician on admission: Debi Ang, Discharging clinician: Debi Ang, Expected date of discharge: 02/27/17
[2017-02-27 16:27] LABS: Troponin I Only < 0.015 NG/ML (0.00-0.045)
[2017-02-27 17:21] VITALS: BP 159/98
[2017-02-27] MEDS ORDERED: LIOTHYRONINE 25 MCG TABLET PO SCH (21:00)
[2017-02-28] MEDS ORDERED: ASPIRIN EC 81 MG TABLET PO SCH (09:00)
[2017-02-28] MEDS ORDERED: CLOPIDOGREL 75 MG TABLET PO SCH (09:00)
== END 2017-02-27 17:35 | disposition home or self-care (01) | DRG 315 ==
LOC: N.TELEN 23:45
PROVIDERS: ADMIT Internal Medicine Cardiovascular Disease; ATTEND Internal Medicine Cardiovascular Disease